=== PATIENT | female | born 1990 | race Two or more races ===

== ENCOUNTER 2018-01-04 21:09 | Emergency (ER) | payer SELFPAY ==
[2018-01-04 21:32] LABS: URINE HCG POC HCG NEGATIVE (Negative)
[2018-01-04 21:41] LABS: BILIRUBIN,URINE SMALL (NEG); CLARITY,URINE CLOUDY; COLOR,URINE YELLOW; GLUCOSE,URINE NEGATIVE (NEG); NITRITE,URINE NEGATIVE (NEG); PH,URINE 5.5; PROTEIN,URINE NEGATIVE (NEG-TRACE)
[2018-01-04 21:42] LABS: ADD MAN DIFF? NO
[2018-01-04 21:44] LABS: BASO # 0.1 x10^3/uL (0.0-0.2); BASO % 1 % (0-3); EOS # 0.5 x10^3/uL (0.0-0.7); EOS % 5 % (0-3); HEMATOCRIT 40.3 % (36.0-47.0); HEMOGLOBIN 13.7 g/dL (12.0-15.5); LYMPH # 2.7 x10^3/uL (1.0-4.8); LYMPH % 27 % (24-48); MEAN CORPUSCULAR HEMOGLOBIN 28 pg (25-35); MEAN CORPUSCULAR HGB CONC 34 g/dL (31-37); MEAN CORPUSCULAR VOLUME 83 fL (79-100); MONO # 0.6 x10^3/uL (0.0-1.1); MONO % 6 % (0-9); NEUT # 6.4 x10^3uL (1.8-7.7); NEUT % 63 % (31-73); PLATELET COUNT 276 x10^3/uL (140-400); RED BLOOD COUNT 4.86 x10^6/uL (3.50-5.40); WHITE BLOOD COUNT 10.2 x10^3/uL (4.0-11.0)
[2018-01-04 21:54] LABS: ANION GAP 5 (6-14); BLOOD UREA NITROGEN 13 mg/dL (7-20); BUN/CREATININE RATIO 19 (6-20); CALCIUM 8.8 mg/dL (8.5-10.1); CARBON DIOXIDE 27 mmol/L (21-32); CHLORIDE 107 mmol/L (98-107); CREATININE 0.7 mg/dL (0.6-1.0); GFR 101.1; GLUCOSE 103 mg/dL (70-99); POTASSIUM 3.5 mmol/L (3.5-5.1); SODIUM 139 mmol/L (136-145)
[2018-01-04 21:56] LABS: BACTERIA,URINE FEW /HPF (0-FEW); RBC,URINE 0 /HPF (0-2); SQUAMOUS EPITHELIAL CELL,UR MANY /LPF
[2018-01-04 21:56] LABS: ETHANOL < 10 mg/dL (0-10)
[2018-01-04 21:57] LABS: BARBITURATES NEG (NEG); BENZODIAZEPINES NEG (NEG); CANNABINOIDS NEG (NEG); COCAINE NEG (NEG); HYALINE CASTS, URINE OCCASIONAL /HPF; METHADONE NEG (NEG); OPIATES NEG (NEG); PHENCYCLIDINE NEG (NEG)
[2018-01-04 21:58] LABS: AMPHETAMINE/METHAMPHETAMINE NEG (NEG); ETHANOL, URINE NEG (NEG)
[2018-01-04 22:00] LABS: ALBUMIN 3.7 g/dL (3.4-5.0); ALBUMIN/GLOBULIN RATIO 1.1 (1.0-1.7); ALK PHOS 83 U/L (46-116); ALT (SGPT) 34 U/L (14-59); AST (SGOT) 21 U/L (15-37); LIPASE 116 U/L (73-393); TOTAL BILIRUBIN 0.2 mg/dL (0.2-1.0); TOTAL PROTEIN 7.2 g/dL (6.4-8.2)
[2018-01-04] MEDS: ONDANSETRON PF 4 MG/2 ML VIAL. IV (22:03)
[2018-01-04] MEDS: PANTOPRAZOLE IV PUSH 40 MG VIAL. IVP (22:04)
[2018-01-04] MEDS: IV NORMAL SALINE 1000ML BAG 1,000 ML IV (22:05)
[2018-01-04] MEDS: KETOROLAC 30 MG/ML INJ. IV (23:41)
== END 2018-01-04 23:10 | disposition home or self-care (01) ==
LOC: ER 21:09
DX: T62.8X1A Toxic effect of other specified noxious substances eaten as food, accidental (unintentional), initial encounter (principal); N39.0 Urinary tract infection, site not specified; Z90.49 Acquired absence of other specified parts of digestive tract; Y92.89 Other specified places as the place of occurrence of the external cause
CPT/HCPCS: 36415; 76700; 80053; 80307; 81001; 81025; 83690; 85025; 96365; 96375; 99285-25; C9113; G0480; J0690; J2405; J7030